=== PATIENT | male | born 1970 | race Caucasian/White ===

== ENCOUNTER 2021-05-19 10:27 | Emergency (ER) | payer BC ==
[2021-05-19] MEDS ORDERED: Glucagon,Human Recombinant 1 MG Vial IVPUSH ONE (11:15)
[2021-05-19] MEDS ORDERED: LORazepam 2 MG/ML SDV IVPUSH ONE (11:15)
[2021-05-19] MEDS ORDERED: Sodium Chloride 0.9% 10 ML Syringe FLUSH PRN (11:15)
[2021-05-19] MEDS ORDERED: HYDROmorphone 0.5 MG/0.5 ML Syringe IVPUSH ONE (11:15)
[2021-05-19] MEDS ORDERED: Ondansetron 4 MG/2 ML SDV IVPUSH STA (11:38)
--- NOTE | 2021-05-19 12:13 | CR ---
Chest: Portable view of the chest was obtained. Comparison: Prior chest x-ray of 01/24/14. Heart size and mediastinum are within normal limits for portable technique. Lungs are clear with no acute parenchymal change. Bony structures are grossly intact. Impression: 1. Nothing acute is seen on portable chest x-ray. Diagnostic code #1
--- NOTE | 2021-05-19 12:49 | EDM.PDOC ---
ED HPI GENERAL MEDICAL PROBLEM - General Chief Complaint: Chest Pain Stated Complaint: CHOKED ON CALIFLOWER NOW COUGHING UP BLOOD Time Seen by Provider: 05/19/21 11:03 Source of Information: Reports: Patient, RN Notes Reviewed - History of Present Illness INITIAL COMMENTS - FREE TEXT/NARRATIVE: 50 yr old male with food bolus stuck in his esophogus. He does have hx of that happening previously, first time about 20 yrs ago and now happening somewhat more frequently about once or twice a month. With time he states he can usually get it to go down drinking some type of fluids. Today he was eating cauliflower when it lodged with obstructed feeling mid chest. He tried to some chocolate mild to push it down. That made him vomit, sates there was a moderate amt of blood. Still feels obstructed at time of my exam. Having what he describes as severe mid chest spasms. - Related Data Allergies Allergy/AdvReac Type Severity Reaction Status Date / Time Iodinated Contrast Media Allergy Swollen Verified 05/19/21 10:52 [Iodinated Contrast Media - Eyes IV Dye] Home Meds: Home Meds Acetaminophen/oxyCODONE [Percocet 325-5 MG] 1 - 2 tab PO Q4H PRN #80 tablet 04/24/14 [Rx] Cyclobenzaprine [Flexeril] 10 mg PO TID PRN #30 tablet 04/24/14 [Rx] Ibuprofen [Motrin] 600 mg PO Q8H PRN #60 tab 04/24/14 [Rx] Acetaminophen/oxyCODONE [Percocet 325-5 MG] 1 each PO Q6HR PRN #10 tab 05/19/21 [Rx] Past Medical History HEENT History: Reports: None Cardiovascular History: Reports: None Respiratory History: Reports: None Gastrointestinal History: Reports: Hiatal Hernia, Other (See Below) 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 Genitourinary History: Reports: None Musculoskeletal History: Reports: None Neurological History: Reports: None Psychiatric History: Reports: None Endocrine/Metabolic History: Reports: None Hematologic History: Reports: None Immunologic History: Reports: None Oncologic (Cancer) History: Reports: None Dermatologic History: Reports: None - Infectious Disease History Infectious Disease History: Reports: Chicken Pox, Novel Coronavirus - Past Surgical History HEENT Surgical History: Reports: None GI Surgical History: Reports: EGD, Other (See Below) Other GI Surgeries/Procedures: exploritory lap Male Surgical History: Reports: None Social & Family History - Family History Family Medical History: No Pertinent Family History Cardiac: Reports: Heart Failure Musculoskeletal: Reports: Gout Endocrine/Metabolic: Reports: Diabetes, type II - Tobacco Use Tobacco Use Status *Q: Never Tobacco User - Caffeine Use Caffeine Use: Reports: Energy Drinks, Soda - Recreational Drug Use Recreational Drug Use: No ED ROS GENERAL - Review of Systems Review Of Systems: See Below Constitutional: Reports: No Symptoms HEENT: Denies: Throat Pain Respiratory: Denies: Shortness of Breath, Pleuritic Chest Pain Cardiovascular: Reports: Chest Pain GI/Abdominal: Reports: Nausea, Vomiting. Denies: Abdominal Pain Musculoskeletal: Denies: Back Pain Skin: Reports: No Symptoms Neurological: Reports: No Symptoms ED EXAM, GENERAL - Physical Exam Exam: See Below General Appearance: Alert, Moderate Distress Eye Exam: Bilateral Eye: PERRL Throat/Mouth: Normal Inspection, Normal Oropharynx Neck: Supple. No: Lymphadenopathy (L), Lymphadenopathy (R) Respiratory/Chest: No Respiratory Distress, Lungs Clear, Normal Breath Sounds. No: Rhonchi, Wheezing Cardiovascular: Regular Rate, Rhythm GI/Abdominal: Soft, Non-Tender Extremities: Normal Inspection Neurological: Alert, Oriented, No Motor/Sensory Deficits Skin Exam: Warm, Dry, Normal Color Course - Vital Signs Last Recorded V/S: Last Vital Signs Temp 97.1 F 05/19/21 14:40 Pulse 73 05/19/21 14:40 Resp 18 05/19/21 14:40 BP 123/83 05/19/21 14:40 Pulse Ox 94 L 05/19/21 14:40 - Orders/Labs/Meds Orders: Active Orders 24 hr Category Date Time Status EKG Documentation Completion [RC] STAT Care 05/19/21 11:27 Active Peripheral IV Insertion Adult [OM.PC] Stat Oth 05/19/21 11:15 Ordered Labs: Laboratory Tests 05/19/21 05/19/21 Range/Units 11:15 11:30 WBC 8.59 (4.23-9.07) K/mm3 RBC 5.79 (4.63-6.08) M/mm3 Hgb 19.2 H D (13.7-17.5) gm/dl Hct 55.7 H (40.1-51.0) % MCV 96.2 H (79.0-92.2) fl MCH 33.2 H (25.7-32.2) pg MCHC 34.5 (32.2-35.5) g/dl RDW Std Deviation 45.1 H (35.1-43.9) fL Plt Count 189 (163-337) K/mm3 MPV 11.0 (9.4-12.3) fl Neut % (Auto) 72.9 H (34.0-67.9) % Lymph % (Auto) 13.7 L (21.8-53.1) % [place] % (Auto) 9.9 (5.3-12.2) % Eos % (Auto) 3.4 (0.8-7.0) Baso % (Auto) 0.1 (0.1-1.2) % Neut # (Auto) 6.26 H (1.78-5.38) K/mm3 Lymph # (Auto) 1.18 L (1.32-3.57) K/mm3 [place] # (Auto) 0.85 H (0.30-0.82) K/mm3 Eos # (Auto) 0.29 (0.04-0.54) K/mm3 Baso # (Auto) 0.01 (0.01-0.08) K/mm3 Sodium 141 (136-145) mEq/L Potassium 4.1 (3.5-5.1) mEq/L Chloride 104 (98-107) mEq/L Carbon Dioxide 27 (21-32) mEq/L Anion Gap 14.1 (5-15) BUN 9 (7-18) mg/dL Creatinine 1.0 (0.7-1.3) mg/dL Est Cr Clr Drug Dosing 92.26 mL/min Estimated GFR (MDRD) > 60 (>60) mL/min BUN/Creatinine Ratio 9.0 L (14-18) Glucose 122 H (70-99) mg/dL Calcium 8.8 (8.5-10.1) mg/dL Total Bilirubin 1.0 (0.2-1.0) mg/dL AST 59 H (15-37) U/L ALT 106 H (16-63) U/L Alkaline Phosphatase 113 (46-116) U/L Total Protein 7.4 (6.4-8.2) g/dl Albumin 3.8 (3.4-5.0) g/dl Globulin 3.6 gm/dL Albumin/Globulin Ratio 1.1 (1-2) Meds: Medications Discontinued Medications Generic Name Dose Route Start Last Admin Trade Name Rudiq PRN Reason Stop Dose Admin Barium Sulfate 340 gm 05/19/21 13:18 05/19/21 13:24 Barium Sulfate 98% Powder For Susp 340 Gm Bottle PO 05/19/21 13:19 340 gm ONETIME ONE Administration Glucagon 1 mg 05/19/21 11:15 05/19/21 11:31 Glucagon,Human Recombinant 1 Mg Vial IVPUSH 05/19/21 11:16 1 mg ONETIME ONE Administration Hydromorphone HCl 0.5 mg 05/19/21 11:15 05/19/21 11:31 Hydromorphone 0.5 Mg/0.5 Ml Syringe IVPUSH 05/19/21 11:16 0.5 mg ONETIME ONE Administration Lorazepam 1 mg 05/19/21 11:15 05/19/21 11:31 Lorazepam 2 Mg/Ml Sdv IVPUSH 05/19/21 11:16 1 mg ONETIME ONE Administration Ondansetron HCl 4 mg 05/19/21 11:38 05/19/21 11:41 Ondansetron 4 Mg/2 Ml Sdv IVPUSH 05/19/21 11:39 4 mg ONETIME STA Administration Sodium Chloride 10 ml 05/19/21 11:15 05/19/21 11:31 Sodium Chloride 0.9% 10 Ml Syringe FLUSH 10 ml ASDIRECTED PRN Administration Keep Vein Open - Re-Assessments/Exams Free Text/Narrative Re-Assessment/Exam: 05/19/21 16:29. We gave him ativan, dilaudid, glucagon IV shortly after arrival. With that he did relax and get some pain relief. He did vomit after drinking water and did vomit out some "pieces of cauliflower" and brown liquid, no blood reported. I did not personally see that. Chest felt somewhat better after that but still having some "spasms". 05/19/21 16:31. I did discuss this with Dr Mulligan who did see patient. Suggested we get an esophogram which was done. It did show an area of focal outpouching mid/distal junction of esophagus which could represent intimal tear vs chronic scarring. See Radiologist report for details. No significant obstruction. Discharge instr. as documented. Departure - Departure Time of Disposition: 14:07 Disposition: Home, Self-Care 01 Condition: Fair Clinical Impression: Esophageal abrasion - Discharge Information Prescriptions: Acetaminophen/oxyCODONE [Percocet 325-5 MG] 1 each PO Q6HR PRN #10 tab PRN Reason: Pain Referrals: Rangel Hoyos MD [Primary Care Provider] - Forms: ED Department Discharge Additional Instructions: Clear liquids until tomorrow afternoon, than very careful soft diet as tolerated as discussed. See Dr Mulligan at [facility] later this week or early next week, call [phone] for appointment. Tylenol for mild to moderate pain or percocet q 6 to 8 hr if needed for severe pain. [facility]. Return to ED as needed if symptoms worsening in any way. Sepsis Event Note (ED) - Evaluation Sepsis Screening Result: No Definite Risk - My Orders Last 24 Hours: My Active Orders 05/19/21 11:15 Peripheral IV Insertion Adult [OM.PC] Stat 05/19/21 11:27 EKG Documentation Completion [RC] STAT - Assessment/Plan Last 24 Hours: My Active Orders 05/19/21 11:15 Peripheral IV Insertion Adult [OM.PC] Stat 05/19/21 11:27 EKG Documentation Completion [RC] STAT
--- NOTE | 2021-05-19 13:06 | PCM.CONS ---
H&P History of Present Illness - General Date of Service: 05/19/21 Source of Information: Patient History Limitations: Reports: No Limitations - History of Present Illness Initial Comments - Free Text/Narative: Patient has dysphagia issues for many years with food getting stuck intermittently but goes down with fluids. Today he was eating cauliflower for breakfast and it got stuck. He tried fluid but started vomiting violently. He vomited red blood and this was concerning for him so he came to the hospital. At the hospital he tolerated some water but has a lot of chest pains. I was asked to see the patient. Onset of Symptoms: Reports: Today Duration of Symptoms: Reports: Hour(s): (4) Location: Reports: Chest Quality: Reports: Sharp Severity: Severe Improves with: Reports: Medication Worsens with: Reports: Other (swallowing) - Related Data Allergies/Adverse Reactions: Allergies Allergy/AdvReac Type Severity Reaction Status Date / Time Iodinated Contrast Media Allergy Swollen Verified 05/19/21 10:52 [Iodinated Contrast Media - Eyes IV Dye] Home Medications: Home Meds Acetaminophen/oxyCODONE [Percocet 325-5 MG] 1 - 2 tab PO Q4H PRN #80 tablet 04/24/14 [Rx] Cyclobenzaprine [Flexeril] 10 mg PO TID PRN #30 tablet 04/24/14 [Rx] Ibuprofen [Motrin] 600 mg PO Q8H PRN #60 tab 04/24/14 [Rx] Past Medical History HEENT History: Reports: None Cardiovascular History: Reports: None Respiratory History: Reports: None Gastrointestinal History: Reports: Hiatal Hernia, Other (See Below) 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 Genitourinary History: Reports: None Musculoskeletal History: Reports: None Neurological History: Reports: None Psychiatric History: Reports: None Endocrine/Metabolic History: Reports: None Hematologic History: Reports: None Immunologic History: Reports: None Oncologic (Cancer) History: Reports: None Dermatologic History: Reports: None - Infectious Disease History Infectious Disease History: Reports: Chicken Pox, Novel Coronavirus - Past Surgical History HEENT Surgical History: Reports: None GI Surgical History: Reports: EGD, Other (See Below) Other GI Surgeries/Procedures: exploritory lap Male Surgical History: Reports: None Social & Family History - Family History Family Medical History: No Pertinent Family History Cardiac: Reports: Heart Failure Musculoskeletal: Reports: Gout Endocrine/Metabolic: Reports: Diabetes, type II - Tobacco Use Tobacco Use Status *Q: Never Tobacco User - Caffeine Use Caffeine Use: Reports: Energy Drinks, Soda - Recreational Drug Use Recreational Drug Use: No H&P Review of Systems - Review of Systems: Review Of Systems: See Below General: Reports: No Symptoms HEENT: Reports: No Symptoms Pulmonary: Reports: No Symptoms Cardiovascular: Reports: No Symptoms Gastrointestinal: Reports: Difficulty Swallowing Genitourinary: Reports: No Symptoms Musculoskeletal: Reports: No Symptoms Exam - Exam Exam: See Below - Vital Signs Vital Signs: Last Vital Signs Temp 96.8 F L 05/19/21 10:57 Pulse 72 05/19/21 10:57 Resp 18 05/19/21 10:57 BP 142/93 H 05/19/21 10:57 Pulse Ox 95 05/19/21 10:57 Weight: 139.616 kg - Exam General: Alert, Oriented, Cooperative Lungs: Clear to Auscultation, Normal Respiratory Effort, Other (no chest wall crepitus) Cardiovascular: Regular Rate, Regular Rhythm GI/Abdominal Exam: Soft, Non-Tender, No Organomegaly, No Distention - Patient Data Lab Results Last 24 hrs: Laboratory Results - last 24 hr 05/19/21 05/19/21 Range/Units 11:15 11:30 WBC 8.59 (4.23-9.07) K/mm3 RBC 5.79 (4.63-6.08) M/mm3 Hgb 19.2 H D (13.7-17.5) gm/dl Hct 55.7 H (40.1-51.0) % MCV 96.2 H (79.0-92.2) fl MCH 33.2 H (25.7-32.2) pg MCHC 34.5 (32.2-35.5) g/dl RDW Std Deviation 45.1 H (35.1-43.9) fL Plt Count 189 (163-337) K/mm3 MPV 11.0 (9.4-12.3) fl Neut % (Auto) 72.9 H (34.0-67.9) % Lymph % (Auto) 13.7 L (21.8-53.1) % [place] % (Auto) 9.9 (5.3-12.2) % Eos % (Auto) 3.4 (0.8-7.0) Baso % (Auto) 0.1 (0.1-1.2) % Neut # (Auto) 6.26 H (1.78-5.38) K/mm3 Lymph # (Auto) 1.18 L (1.32-3.57) K/mm3 [place] # (Auto) 0.85 H (0.30-0.82) K/mm3 Eos # (Auto) 0.29 (0.04-0.54) K/mm3 Baso # (Auto) 0.01 (0.01-0.08) K/mm3 Sodium 141 (136-145) mEq/L Potassium 4.1 (3.5-5.1) mEq/L Chloride 104 (98-107) mEq/L Carbon Dioxide 27 (21-32) mEq/L Anion Gap 14.1 (5-15) BUN 9 (7-18) mg/dL Creatinine 1.0 (0.7-1.3) mg/dL Est Cr Clr Drug Dosing 92.26 mL/min Estimated GFR (MDRD) > 60 (>60) mL/min BUN/Creatinine Ratio 9.0 L (14-18) Glucose 122 H (70-99) mg/dL Calcium 8.8 (8.5-10.1) mg/dL Total Bilirubin 1.0 (0.2-1.0) mg/dL AST 59 H (15-37) U/L ALT 106 H (16-63) U/L Alkaline Phosphatase 113 (46-116) U/L Total Protein 7.4 (6.4-8.2) g/dl Albumin 3.8 (3.4-5.0) g/dl Globulin 3.6 gm/dL Albumin/Globulin Ratio 1.1 (1-2) Result Diagrams: 05/19/21 11:30 05/19/21 11:15 Sepsis Event Note - Evaluation Sepsis Screening Result: No Definite Risk - Focused Exam Vital Signs: Vital Signs Temp Pulse Resp BP Pulse Ox 05/19/21 10:57 96.8 F L 72 18 142/93 H 95 Consult PN Assessment/Plan Procedures: Procedures ASSAY OF MAGNESIUM (04/23/14) ASSAY OF PHOSPHORUS (04/23/14) COMPLETE CBC AUTOMATED (11/22/14) COMPLETE CBC W/AUTO DIFF WBC (04/23/14) EVALUATION OF WHEEZING (12/16/14) GLYCOSYLATED HEMOGLOBIN TEST (11/22/14) HYDRATE IV INFUSION ADD-ON (04/29/14) HYDRATION IV INFUSION INIT (04/23/14) INFLUENZA A/B EACH AG IA (11/22/14) INJECTION FOR BLADDER X-RAY (04/23/14) LAP ING HERNIA REPAIR INIT (04/23/14) LAP VENT/ABD HERNIA REPAIR (04/23/14) LAPARO PROC SPERMATIC CORD (04/23/14) METABOLIC PANEL TOTAL CA (11/22/14) MRI LUMBAR SPINE W/O & W/DYE (11/08/19) PROTHROMBIN TIME (04/23/14) ROUTINE VENIPUNCTURE (11/22/14) THER/PROPH/DIAG INJ IV PUSH (04/29/14) TX/PRO/DX INJ SAME DRUG 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 Now continues to have severe retrosternal chest pain with swallowing tolerance. I recommend we do esophagram to rule out leakage/esophageal perforation and make sure there is no residual esophageal foreign body. If negative, patient can be discharged on PPIs and Carafate and follow up with me in clinic in 1-2 weeks.
[2021-05-19] MEDS ORDERED: Barium Sulfate 98% Powder for Susp 340 GM Bottle PO ONE (13:18)
--- NOTE | 2021-05-19 13:21 | CR ---
Esophagram Technique: Multiple fluoroscopic images were obtained after contrast administration. Comparison: No prior esophagram study is available. Findings: There is irregularity within the distal esophagus most likely representing senescent change. Contrast is noted within the stomach. Small hiatal hernia seen. There is focal outpouching seen near the junction of the mid and distal esophagus on the lateral view which is either due to scarring or an intimal tear. Endoscopy will be needed to differentiate. There are no intraluminal filling defects being seen. Impression: 1. Focal outpouching near the junction of the mid and distal esophagus which could represent scarring or represent change from an intimal tear. Consider endoscopy to further evaluate. 2. Irregularity within the distal esophagus slowing down transit into the stomach compatible with senescent change. Small hiatal hernia is also noted. 3. No intraluminal fixed abnormalities are otherwise seen within the esophagus. Diagnostic code #3
== END 2021-05-19 14:50 | disposition home or self-care (01) ==
LOC: JD.ED 10:27
DX: S27.818A Other injury of esophagus (thoracic part), initial encounter (principal); Z91.041 Radiographic dye allergy status; W22.8XXA Striking against or struck by other objects, initial encounter
CPT/HCPCS: 36415; 71045; 74220; 80053; 85025; 93005; 96374; 96375; 99284; J1170; J1610; J2060; J2405

== ENCOUNTER 2021-10-10 11:52 | Emergency (ER) | payer BC ==
[2021-10-10] MEDS ORDERED: Ketorolac 60 MG/2 ML SDV IM ONE (12:20)
[2021-10-10] MEDS ORDERED: Orphenadrine 100 MG Tab.ER PO ONE (12:20)
--- NOTE | 2021-10-10 12:28 | EDM.PDOC ---
ED HPI GENERAL MEDICAL PROBLEM - General Chief Complaint: Upper Extremity Injury/Pain Stated Complaint: SHOULDER AND NECK PAIN Time Seen by Provider: 10/10/21 12:02 Source of Information: Reports: Patient, RN Notes Reviewed History Limitations: Reports: No Limitations - History of Present Illness INITIAL COMMENTS - FREE TEXT/NARRATIVE: Patient is a 51-year-old male who presents to the ER for the evaluation of his neck and right shoulder pain. Patient notes about 3 days ago, he was playing tug of war with his dog. He states that over the last few days, he has had some pain into his right side of his neck, that travels down into his right shoulder and down into his right arm. States that the pain was the worst today, he has been using Tylenol and ibuprofen for pain management and he did take one Flexeril earlier this morning for management. Patient is worried that he may have torn or strained a muscle or had further nerve damage. Patient states that he has been sleeping upright in order to alleviate the pain. States that if he stands up straight, the pain seems to intensify and then shoot down his right arm. He notes that if he cocks his head to the left side a little bit, this seems to alleviate some of the discomfort. Patient denies any other sick-like symptoms, fever/chills, cough/shortness of breath, nausea/vomiting/diarrhea. 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 Right Neck Pain Score (Numeric/FACES): 8 - Related Data Allergies Allergy/AdvReac Type Severity Reaction Status Date / Time Iodinated Contrast Media Allergy Swollen Verified 10/10/21 12:14 [Iodinated Contrast Media - Eyes IV Dye] Home Meds: Home Meds Cyclobenzaprine [Flexeril] 10 mg PO TID PRN #30 tablet 04/24/14 [Rx] Ibuprofen [Motrin] 600 mg PO Q8H PRN #60 tab 04/24/14 [Rx] Hydrocodone/Acetaminophen [HYDROcodone-Acetaminophen 5-325 MG] 1 each PO Q6H PRN #12 tablet 10/10/21 [Rx] predniSONE 20 mg PO ASDIRECTED #15 tab 10/10/21 [Rx] Past Medical History Gastrointestinal History: Reports: Hiatal Hernia, Other (See Below) Other Gastrointestinal History: strictures in esophagus - Infectious Disease History Infectious Disease History: Reports: Chicken Pox, Novel Coronavirus - Past Surgical History GI Surgical History: Reports: EGD, Other (See Below) Other GI Surgeries/Procedures: exploratory lap Social & Family History - Family History Family Medical History: No Pertinent Family History Cardiac: Reports: Heart Failure Musculoskeletal: Reports: Gout Endocrine/Metabolic: Reports: Diabetes, type II - Tobacco Use Tobacco Use Status *Q: Current Every Day Tobacco User Years of Tobacco use: 30 Packs/Tins Daily: 1 Used Tobacco, but Quit: No Second Hand Smoke Exposure: No - Caffeine Use Caffeine Use: Reports: Coffee, Energy Drinks, Soda, Tea - Recreational Drug Use Recreational Drug Use: No Review of Systems - Review of Systems Review Of Systems: Comprehensive ROS is negative, except as noted in HPI. ED EXAM, GENERAL - Physical Exam Exam: See Below Exam Limited By: No Limitations General Appearance: Alert, WD/WN, No Apparent Distress Neck: Tender Lateral (on posterior proximal neck) Respiratory/Chest: No Respiratory Distress, Lungs Clear, Normal Breath Sounds, No Accessory Muscle Use, Chest Non-Tender Cardiovascular: Normal Peripheral Pulses, Regular Rate, Rhythm, No Edema GI/Abdominal: Normal Bowel Sounds, Soft, Non-Tender, No Distention, No Mass Back Exam: Muscle Spasm (with posterior back pain; seems to be about mid scapula and radiates down right arm) Extremities: Normal Inspection, Normal Capillary Refill Neurological: Alert, Oriented, Normal Cognition, No Motor/Sensory Deficits Psychiatric: Normal Affect, Normal Mood Skin Exam: Warm, Dry, Intact, Normal Color, No Rash Course - Vital Signs Last Recorded V/S: Last Vital Signs Temp 96.8 F L 10/10/21 12:07 Pulse 83 10/10/21 12:07 Resp 16 10/10/21 12:07 BP 145/101 H 10/10/21 12:07 Pulse Ox 94 L 10/10/21 12:07 - Orders/Labs/Meds Meds: Medications Discontinued Medications Generic Name Dose Route Start Last Admin Trade Name Peter PRN Reason Stop Dose Admin Ketorolac Tromethamine 60 mg 10/10/21 12:20 10/10/21 12:55 Ketorolac 60 Mg/2 Ml Sdv IM 10/10/21 12:21 60 mg ONETIME ONE Administration Orphenadrine Citrate 100 mg 10/10/21 12:20 10/10/21 12:56 Orphenadrine 100 Mg Tab.Er PO 10/10/21 12:21 100 mg ONETIME ONE Administration - Re-Assessments/Exams Free Text/Narrative Re-Assessment/Exam: 10/10/21 12:28 Patient presents to the ER for evaluation of his neck and shoulder pain. We will go ahead and get x-rays of his neck and shoulder region, given some pain management meds for initial management. 10/10/21 13:58 Patient's x-rays have been taken, there is mild disc space narrowing at C5-C6 and more severe disc space narrowing noted through C6-C7 and C7-T1. This is about the level of his pain in his shoulder, his patient's shoulder joint shows acromioclavicular joint showing inferior spurring of the distal clavicle. Likely the disc dysfunction at C7-T1/C6-C7 is probably causing more of his issues. We will go ahead and get him on a short burst of steroids and some pain meds and have him follow-up with his regular care provider this week if not feeling much better. Departure - Departure Time of Disposition: 14:01 Disposition: Home, Self-Care 01 Condition: Good Clinical Impression: Neck pain on right side Right shoulder pain Qualifiers: Chronicity: acute Qualified Code(s): M25.511 - Pain in right shoulder - Discharge Information *PRESCRIPTION DRUG MONITORING PROGRAM REVIEWED*: Yes *COPY OF PRESCRIPTION DRUG MONITORING REPORT IN PATIENT ROXANNA: No Instructions: Musculoskeletal Pain Referrals: Rangel Hoyos MD [Primary Care Provider] - Forms: ED Department Discharge Additional Instructions: You have been evaluated in the ED for your right neck/right shoulder pain. Your x-ray demonstrated degenerative change at C5-C6 disc and C7-T1. This is likely the source of your pain causing some shooting pains down your right arm. Please use ice/heat as tolerated to the affected area. You were given a prescription for a strong pain medication, hydrocodone/acetaminophen 5/325 mg), please take 1 tab every 6 hours as needed for pain not relieved by Tylenol or ibuprofen alone. Please note this medication does contain Tylenol in it, so do not take more than 4000 mg in a 24- hour time span. These medications can be addictive, so please take as few as possible to achieve adequate pain control. These meds can also be quite constipating, recommend that you increase your oral fluid intake and take a stool softener like MiraLAX while taking these medications. Do not drive while taking this medication. This medication was electronically sent to the [facility] located near [facility]. You were given also a prescription of steroids to help calm down the nerve inflammation that is thought to be caused by the degenerative change in your neck. Please take as directed. This was sent also to the [facility] Please follow-up with your regular provider for re-evaluation, if your injury is not feeling much better in roughly 7 to 10 days time. Please return to ED if your symptoms should change or worsen. Sepsis Event Note (ED) - Evaluation Sepsis Screening Result: No Definite Risk - Focused Exam Vital Signs: Vital Signs Temp Pulse Resp BP Pulse Ox 10/10/21 12:07 96.8 F L 83 16 145/101 H 94 L
--- NOTE | 2021-10-10 13:53 | CR ---
Right shoulder: 3 views of the right shoulder were obtained. Comparison: No prior right shoulder study is available. Acromioclavicular joint shows inferior spurring off the distal clavicle. Glenohumeral joint is normal. No acute fracture or other bony abnormality is appreciated. Impression: 1. Acromioclavicular joint shows inferior spurring off the distal clavicle. 2. Right shoulder study is otherwise unremarkable. Diagnostic code #2
--- NOTE | 2021-10-10 13:54 | CR ---
Cervical spine: AP, lateral, swimmer's view and odontoid view of the cervical spine was obtained. Comparison: No prior cervical spine study is available. Mild disc space narrowing is noted at C5-6. More severe disc space narrowing is noted at C6-7 and C7-T1. Bridging osteophytes are also noted at these levels anteriorly. Slight degenerative change is seen within the uncovertebral joints at C6-7. No fracture or subluxation is seen. Impression: 1. Degenerative change at C5-6 through C7-T1. 2. No definite acute abnormality is appreciated. Diagnostic code #2
== END 2021-10-10 14:25 | disposition home or self-care (01) ==
LOC: JD.ED 11:52
DX: M25.511 Pain in right shoulder (principal); M54.2 Cervicalgia; Z91.041 Radiographic dye allergy status; Z72.0 Tobacco use; Z86.16 Personal history of COVID-19
CPT/HCPCS: 72040; 73030; 96372; 99283; A9270; J1885

== ENCOUNTER 2023-08-22 09:05 | Day surgery (SDC) | payer BC ==
[~2023-08-22 09:05] MED LIST: Lactated Ringers 1,000 ML IV SCH; Sodium Chloride 0.9% 10 ML Syringe FLUSH PRN; Sodium Chloride 0.9% 10 ML Syringe FLUSH SCH
[2023-08-22] MEDS ORDERED: Midazolam 1 MG/ML 2 ML SDV ONE (10:06)
[2023-08-22] MEDS ORDERED: fentaNYL 100 MCG/2 ML SDV ONE (10:06)
[2023-08-22] MEDS ORDERED: Propofol 200 MG/20 ML SDV ONE ×2 (10:06→11:25)
[2023-08-22] MEDS ORDERED: Lidocaine 1% PF 2 ML SDV ONE (10:06)
[2023-08-22] MEDS ORDERED: Lidocaine 1% 4 ML ONE (10:06)
[2023-08-22] MEDS ORDERED: Bupivacaine 0.5% 30 ML SDV ONE (10:21)
[2023-08-22] MEDS ORDERED: Lactated Ringers 1,000 ML ONE (11:34)
== END 2023-08-22 13:00 | disposition home or self-care (01) ==
LOC: JD.SDS 09:05
PROVIDERS: ATTEND Surgery
DX: D12.2 Benign neoplasm of ascending colon (principal); K63.5 Polyp of colon; K62.1 Rectal polyp; K29.80 Duodenitis without bleeding; K29.50 Unspecified chronic gastritis without bleeding; K22.89 Other specified disease of esophagus; K57.30 Diverticulosis of large intestine without perforation or abscess without bleeding; K64.9 Unspecified hemorrhoids; K21.9 Gastro-esophageal reflux disease without esophagitis; E66.9 Obesity, unspecified; Z98.890 Other specified postprocedural states; Z87.891 Personal history of nicotine dependence; Z91.041 Radiographic dye allergy status; Z79.899 Other long term (current) drug therapy; Z68.42 Body mass index [BMI] 45.0-49.9, adult
CPT/HCPCS: 43239; 45380; 46221; J2250; J2704; J3010; J3490; J7120; 00813